=== PATIENT | male | born 1945 | race Caucasian/White ===

== ENCOUNTER 2016-11-16 11:17 | Inpatient (IN) | payer MEDICARE ==
[~2016-11-16] VITALS: Ht 175.3 cm; Wt 89.8 kg
[~2016-11-16 11:17] MED LIST: CLON1 PO; HYDR12.56 PO; NAPR220T9 PO; TYLE500T PO
[2016-11-16 11:19] VITALS: BP 178/95; PULSE 100; RESP 17; TEMP 98.1; O2SAT 96
[2016-11-16] MEDS ORDERED: ATOR20TA15 PO (13:05)
[2016-11-16] MEDS ORDERED: CLON1TAB PO (13:05)
[2016-11-16] MEDS ORDERED: HYDR25TA5 PO (13:05)
[2016-11-16] MEDS ORDERED: LOMO2.5T PO (13:05)
[2016-11-16] MEDS ORDERED: TRAM50TA PO (13:05)
--- NOTE | 2016-11-16 13:10 | PD ---
HPI Chief Complaint: Abdominal Pain Time Seen by Provider: 13:10 Travel History International Travel<30 days: No Contact w/Intl Traveler<30days: No Traveled to known affect area: No History of Present Illness HPI 71 year old male with PMH of colon cancer, status post resection ~25 years ago, SBO 11/[address] Marks presents to the ED for evaluation less than 24 hour history of abdominal pain. Patient states he ate dinner last night , shortly after he began experiencing pressure and tension in the abdomen. He states that during the course of the night he took a few stool softeners and was able to produce a small, well-formed stool this morning. He endorses passing a small amount of gas during the night. He denies fever, chills, dysuria, hematuria, nausea or vomiting. Endorses chronic back pain, no worse this morning. PCP Dr. Stern. [facility] Past Medical History Autoimmune Disease: No Anxiety: Yes Cancer: Yes (COLO/RECTAL) Cardiovascular Problems: Yes Diminished Hearing: No Hypertension: Yes Musculoskeletal: No Neurologic: No Reproductive: No Respiratory: No Past Surgical History Abdominal Aneurysm Repair: Yes (COLORECTAL SURGERY) Abdominal Surgery: Yes (COLECTOMY 2NDARY TO COLON CA) Pacemaker: No Social History Alcohol Use: No Tobacco Use: No Substance Use: No Allergies-Medications (Allergen,Severity, Reaction): Coded Allergies: No Known Allergies (Verified , 11/16/16) Reported Meds & Prescriptions Reported Meds & Active Scripts Active Reported Tramadol (Tramadol HCl) 50 Mg Tab 50 Mg PO Q6H PRN Hydrochlorothiazide 25 Mg Tab 25 Mg PO DAILY Lomotil (Diphenoxylate-Atropine) 2.5-0.025 Mg Tab 1 Tab PO Q6H PRN Clonazepam 1 Mg Tab 1.5 Mg PO HS Review of Systems Except as stated in HPI: all other systems reviewed are Neg Physical Exam Narrative GENERAL: Well-nourished, well-developed white male, appearing younger than his stated age, in no acute distress. SKIN: Warm and dry. HEAD: Normocephalic. EYES: No scleral icterus. No injection or drainage. NECK: Supple, trachea midline. No JVD or lymphadenopathy. CARDIOVASCULAR: Regular rate and rhythm without murmurs, gallops, or rubs. RESPIRATORY: Breath sounds clear and equal bilaterally. No accessory muscle use. GASTROINTESTINAL: Abdomen soft, mildly tender in all quadrants, left greater than right, nondistended. Active bowel sounds. MUSCULOSKELETAL: No cyanosis, or edema. BACK: Nontender without obvious deformity. No CVA tenderness. Data Data Last Documented VS Vital Signs Date Time Temp Pulse Resp B/P Pulse Ox O2 Delivery O2 Flow Rate FiO2 11/16/16 11:19 98.1 100 17 178/95 96 Orders Complete Blood Count With Diff (11/16/16 13:22) Comprehensive Metabolic Panel (11/16/16 13:22) Lipase (11/16/16 13:22) Lactic Acid (11/16/16 13:22) Prothrombin Time / Inr (Pt) (11/16/16 13:22) Act Partial Throm Time (Ptt) (11/16/16 13:22) Urinalysis - C+S If Indicated (11/16/16 13:22) Ct Abd/Pel W Iv Contrast(Rout) (11/16/16 13:22) Iv Access Insert/Monitor (11/16/16 13:22) Sodium Chlor 0.9% 1000 Ml Inj (Ns 1000 M (11/16/16 13:22) Sodium Chloride 0.9% Flush (Ns Flush) (11/16/16 13:30) Labs Laboratory Tests Test 11/16/16 11/16/16 11/16/16 12:37 13:27 14:12 White Blood Count 9.8 TH/MM3 Red Blood Count 4.65 MIL/MM3 Hemoglobin 14.3 GM/DL Hematocrit 41.1 % Mean Corpuscular Volume 88.5 FL Mean Corpuscular Hemoglobin 30.8 PG Mean Corpuscular Hemoglobin 34.9 % Concent Red Cell Distribution Width 12.2 % Platelet Count 244 TH/MM3 Mean Platelet Volume 7.9 FL Neutrophils (%) (Auto) 84.5 % Lymphocytes (%) (Auto) 8.7 % Monocytes (%) (Auto) 6.0 % Eosinophils (%) (Auto) 0.5 % Basophils (%) (Auto) 0.3 % Neutrophils # (Auto) 8.2 TH/MM3 Lymphocytes # (Auto) 0.8 TH/MM3 Monocytes # (Auto) 0.6 TH/MM3 Eosinophils # (Auto) 0.1 TH/MM3 Basophils # (Auto) 0.0 TH/MM3 CBC Comment DIFF FINAL Differential Comment Prothrombin Time 10.4 SEC Prothromb Time International 0.9 RATIO Ratio Activated Partial 30.3 SEC Thromboplast Time Sodium Level 139 MEQ/L Potassium Level 3.4 MEQ/L Chloride Level 103 MEQ/L Carbon Dioxide Level 29.5 MEQ/L Anion Gap 7 MEQ/L Blood Urea Nitrogen 14 MG/DL Creatinine 0.74 MG/DL Estimat Glomerular Filtration 104 ML/MIN Rate Random Glucose 91 MG/DL Calcium Level 8.5 MG/DL Total Bilirubin 0.8 MG/DL Aspartate Amino Transf 13 U/L (AST/SGOT) Alanine Aminotransferase 20 U/L (ALT/SGPT) Alkaline Phosphatase 78 U/L Total Protein 7.2 GM/DL Albumin 3.7 GM/DL Lipase 7788 U/L Lactic Acid Level 0.8 mmol/L Urine Color YELLOW Urine Turbidity CLEAR Urine pH 6.5 Urine Specific [place] 1.011 Urine Protein NEG mg/dL Urine Glucose (UA) NEG mg/dL Urine Ketones 40 mg/dL Urine Occult Blood NEG Urine Nitrite NEG Urine Bilirubin NEG Urine Urobilinogen LESS THAN 2.0 MG/DL Urine Leukocyte Esterase NEG Urine RBC 1 /hpf Urine WBC 1 /hpf Microscopic Urinalysis Comment CULT NOT INDICATED MDM Medical Decision Making Medical Screen Exam Complete: Yes Emergency Medical Condition: Yes Differential Diagnosis Ileus versus bowel obstruction versus other pancreatitis versus diverticulitis versus colitis versus other Narrative Course 71 year old male with PMH of colon cancer, status post resection ~25 years ago, SBO 11/[address] Marks presents to the ED for evaluation less than 24 hour history of abdominal pain. Patient states he ate dinner last night , shortly after he began experiencing pressure and tension in the abdomen. He states that during the course of the night he took a few stool softeners and was able to produce a small, well-formed stool this morning. He endorses passing a small amount of gas during the night. He denies fever, chills, dysuria, hematuria, nausea or vomiting. PCP Dr. Stern. Vitals reviewed. Physical exam reveals a nontoxic-appearing white male in no acute distress. Abdomen nondistended, mildly tender in all quadrants, left greater than right. No palpable masses. IV was established, patient was administered a liter of an abscess. Lab work, abdominal CT ordered. Lipase 7788. Patient is transferred to the medical pods under the care of Dr. Renae. Please see her notes for disposition. Rosemary Mccullough Nov 16, 2016 13:10
[2016-11-16] MEDS ORDERED: SODIUM CHLOR 0.9% 1000 ML INJ 1,000 ML IV SCH (13:22)
[2016-11-16 13:44] LABS: AUTOMATED NEUTROPHIL # 8.2 TH/MM3 (1.8-7.7); BASOPHIL % 0.3 % (0.0-2.0); EOSINOPHIL # 0.1 TH/MM3 (0-0.4); EOSINOPHIL % 0.5 % (0.0-4.0); HEMATOCRIT 41.1 % (39.0-51.0); HEMO FLAGS DIFF FINAL; LYMPH % 8.7 % (9.0-44.0); LYMPHOCYTE # 0.8 TH/MM3 (1.0-4.8); MEAN CELL VOLUME 88.5 FL (80.0-100.0); MEAN CORPUSCULAR HEMOGLOBIN 30.8 PG (27.0-34.0); MEAN CORPUSCULAR HGB CONC 34.9 % (32.0-36.0); NEUT % 84.5 % (16.0-70.0); PLATELET COUNT 244 TH/MM3 (150-450); RED BLOOD COUNT 4.65 MIL/MM3 (4.50-5.90); RED CELL DISTRIBUTION WIDTH 12.2 % (11.6-17.2); WHITE BLOOD COUNT 9.8 TH/MM3 (4.0-11.0)
[2016-11-16 13:49] LABS: APTT (PATIENT) 30.3 SEC (24.3-30.1); INTERNATIONAL NORMALIZED RATIO 0.9 RATIO; PROTHROMBIN TIME - PATIENT 10.4 SEC (9.8-11.6)
[2016-11-16 14:09] LABS: ANION GAP 7 MEQ/L (5-15)
[2016-11-16 14:13] LABS: ALKALINE PHOSPHATASE 78 U/L (45-117); ALT (GPT) 20 U/L (12-78); AST (GOT) 13 U/L (15-37); BICARBONATE 29.5 MEQ/L (21.0-32.0); BLOOD UREA NITROGEN 14 MG/DL (7-18); CHLORIDE 103 MEQ/L (98-107); GLOMERULAR FILTRATION RATE 104 ML/MIN (>89); POTASSIUM 3.4 MEQ/L (3.5-5.1); SODIUM (NA) 139 MEQ/L (136-145); TOTAL BILIRUBIN ADULT 0.8 MG/DL (0.2-1.0)
[2016-11-16] MEDS: SODIUM CHLORIDE 0.9% FLUSH 5 ML FLUSH IVF PRN ×2 (14:25→16:22)
[2016-11-16 14:28] LABS: BLOOD, URINE NEG (NEG); COMMENT (UR) CULT NOT INDICATED; CULTURE IF INDICATED CULT NOT INDICATED; GLUCOSE,URINE NEG (NEG); KETONE, URINE 40 mg/dL (NEG); NITRITE,URINE NEG (NEG); PH, URINE 6.5 (5.0-8.5); URINE COLOR YELLOW (YELLW/STRAW)
[2016-11-16] MEDS ORDERED: ONDANSETRON HCL 4 MG/2 ML VIAL IV PUSH ONE (15:00)
[2016-11-16] MEDS ORDERED: SODIUM CHLOR 0.9% 1000 ML INJ 1,000 ML IV ONE (15:00)
[2016-11-16] MEDS ORDERED: MORPHINE SULFATE 4 MG/ML INJ IV PUSH ONE (15:00)
[2016-11-16] MEDS ORDERED: IOHEXOL 350 MG/ML 10 ML VIAL (for RAD DIAG) IV ONE (15:28)
[2016-11-16 15:29] VITALS: BP 152/86; PULSE 75; RESP 16; TEMP 97.8; O2SAT 98
--- NOTE | 2016-11-16 15:45 | PD ---
HPI Chief Complaint: Abdominal Pain Time Seen by Provider: 14:39 Travel History International Travel<30 days: No Contact w/Intl Traveler<30days: No Traveled to known affect area: No History of Present Illness HPI 71-year-old male came to the emergency room with history of abdominal pain/ discomfort since last night. Patient says that he had small bowel obstruction a year and a half ago and this time it feels exactly like that. No history of vomiting or diarrhea. In fact patient says that he has not had a good bowel movement in past 2 days. He has passed some gas and had a small well-formed stool this morning. Patient was seen by the nurse practitioner in triage and some blood test were ordered. By the time he came inside the emergency room the blood test results were back and it seems like his lipase is elevated. I discussed with him about the possibility of acute pancreatitis. Patient was just started recently on statins for mildly elevated blood profile. Other than that he is not an alcoholic and has never had gallbladder issues. There is a CAT scan that has been ordered as well which is pending. Vital signs were stable. He said he was in some discomfort from the pain. [facility] Past Medical History Narrative Medical List of his past medical history as reviewed from the nursing note. Autoimmune Disease: No Anxiety: Yes Cancer: Yes (COLO/RECTAL) Cardiovascular Problems: Yes Diminished Hearing: No Gastrointestinal Disorders: Yes Hypertension: Yes Musculoskeletal: No Neurologic: No Reproductive: No Respiratory: No Tetanus Vaccination: > 5 Years Past Surgical History Abdominal Aneurysm Repair: Yes (COLORECTAL SURGERY) Abdominal Surgery: Yes (COLECTOMY 2NDARY TO COLON CA) Pacemaker: No Other Surgery: Yes Social History Alcohol Use: No Tobacco Use: No Substance Use: No Allergies-Medications (Allergen,Severity, Reaction): Coded Allergies: No Known Allergies (Verified , 11/16/16) Comments No known drug allergies. Reported Meds & Prescriptions Reported Meds & Active Scripts Active Reported Atorvastatin (Atorvastatin Calcium) 20 Mg Tab 20 Mg PO HS Tramadol (Tramadol HCl) 50 Mg Tab 50 Mg PO Q6H PRN Hydrochlorothiazide 25 Mg Tab 25 Mg PO DAILY Lomotil (Diphenoxylate-Atropine) 2.5-0.025 Mg Tab 1 Tab PO Q6H PRN Clonazepam 1 Mg Tab 1.5 Mg PO HS Narrative Medication List of his home medications reviewed from the nursing note. Review of Systems Except as stated in HPI: all other systems reviewed are Neg Physical Exam Narrative GENERAL: Awake, alert, moderate distress SKIN: Warm and dry. HEAD: Atraumatic. Normocephalic. EYES: Pupils equal and round. No scleral icterus. No injection or drainage. ENT: No nasal bleeding or discharge. Dry mucous membrane NECK: Trachea midline. No JVD. CARDIOVASCULAR: Regular rate and rhythm. No murmur appreciated. RESPIRATORY: No accessory muscle use. Clear to auscultation. Breath sounds equal bilaterally. GASTROINTESTINAL: Abdomen soft, non-tender, nondistended. Hepatic and splenic margins not palpable. MUSCULOSKELETAL: No obvious deformities. No clubbing. No cyanosis. No edema. NEUROLOGICAL: Awake and alert. No obvious cranial nerve deficits. Motor grossly within normal limits. Normal speech. PSYCHIATRIC: Appropriate mood and affect; insight and judgment normal. Data Data Last Documented VS Vital Signs Date Time Temp Pulse Resp B/P Pulse Ox O2 Delivery O2 Flow Rate FiO2 11/16/16 15:29 97.8 75 16 152/86 98 Room Air Orders Complete Blood Count With Diff (11/16/16 13:22) Comprehensive Metabolic Panel (11/16/16 13:22) Lipase (11/16/16 13:22) Lactic Acid (11/16/16 13:22) Prothrombin Time / Inr (Pt) (11/16/16 13:22) Act Partial Throm Time (Ptt) (11/16/16 13:22) Urinalysis - C+S If Indicated (11/16/16 13:22) Ct Abd/Pel W Iv Contrast(Rout) (11/16/16 13:22) Iv Access Insert/Monitor (11/16/16 13:22) Sodium Chlor 0.9% 1000 Ml Inj (Ns 1000 M (11/16/16 13:22) Sodium Chloride 0.9% Flush (Ns Flush) (11/16/16 13:30) Morphine Inj (Morphine Inj) (11/16/16 15:00) Ondansetron Inj (Zofran Inj) (11/16/16 15:00) Sodium Chlor 0.9% 1000 Ml Inj (Ns 1000 M (11/16/16 15:00) Iohexol 350 Inj (Omnipaque 350 Inj) (11/16/16 15:28) Diet Npo (11/16/16 Dinner) Vital Signs (Adult) LINDA.Q4H (11/16/16 16:42) Lipase (11/17/16 06:00) Ondansetron Inj (Zofran Inj) (11/16/16 16:45) Acetaminophen (Tylenol) (11/16/16 16:45) Hydromorphone Pf Inj (Dilaudid Pf Inj) (11/16/16 16:45) Admit Order (Ed Use Only) (11/16/16 16:43) Labs Laboratory Tests Test 11/16/16 11/16/16 11/16/16 12:37 13:27 14:12 White Blood Count 9.8 TH/MM3 Red Blood Count 4.65 MIL/MM3 Hemoglobin 14.3 GM/DL Hematocrit 41.1 % Mean Corpuscular Volume 88.5 FL Mean Corpuscular Hemoglobin 30.8 PG Mean Corpuscular Hemoglobin 34.9 % Concent Red Cell Distribution Width 12.2 % Platelet Count 244 TH/MM3 Mean Platelet Volume 7.9 FL Neutrophils (%) (Auto) 84.5 % Lymphocytes (%) (Auto) 8.7 % Monocytes (%) (Auto) 6.0 % Eosinophils (%) (Auto) 0.5 % Basophils (%) (Auto) 0.3 % Neutrophils # (Auto) 8.2 TH/MM3 Lymphocytes # (Auto) 0.8 TH/MM3 Monocytes # (Auto) 0.6 TH/MM3 Eosinophils # (Auto) 0.1 TH/MM3 Basophils # (Auto) 0.0 TH/MM3 CBC Comment DIFF FINAL Differential Comment Prothrombin Time 10.4 SEC Prothromb Time International 0.9 RATIO Ratio Activated Partial 30.3 SEC Thromboplast Time Sodium Level 139 MEQ/L Potassium Level 3.4 MEQ/L Chloride Level 103 MEQ/L Carbon Dioxide Level 29.5 MEQ/L Anion Gap 7 MEQ/L Blood Urea Nitrogen 14 MG/DL Creatinine 0.74 MG/DL Estimat Glomerular Filtration 104 ML/MIN Rate Random Glucose 91 MG/DL Calcium Level 8.5 MG/DL Total Bilirubin 0.8 MG/DL Aspartate Amino Transf 13 U/L (AST/SGOT) Alanine Aminotransferase 20 U/L (ALT/SGPT) Alkaline Phosphatase 78 U/L Total Protein 7.2 GM/DL Albumin 3.7 GM/DL Lipase 7788 U/L Lactic Acid Level 0.8 mmol/L Urine Color YELLOW Urine Turbidity CLEAR Urine pH 6.5 Urine Specific [place] 1.011 Urine Protein NEG mg/dL Urine Glucose (UA) NEG mg/dL Urine Ketones 40 mg/dL Urine Occult Blood NEG Urine Nitrite NEG Urine Bilirubin NEG Urine Urobilinogen LESS THAN 2.0 MG/DL Urine Leukocyte Esterase NEG Urine RBC 1 /hpf Urine WBC 1 /hpf Microscopic Urinalysis Comment CULT NOT INDICATED MDM Medical Decision Making Medical Screen Exam Complete: Yes Emergency Medical Condition: Yes Medical Record Reviewed: Yes Differential Diagnosis Acute pancreatitis, small bowel obstruction Narrative Course 3:43 PM awaiting for the CAT scan report. Patient was given a second IV fluid bolus. He will require admission for the acute pancreatitis. He was given Morphine for the pain. 4:13 PM CAT scan shows acute pancreatitis. Awaiting for the hospitalist to call back for admission. Procedures EKG Prior to Arrival: No Diagnosis Primary Impression: Acute pancreatitis Qualified Code: K85.90 - Acute pancreatitis, unspecified complication status, unspecified pancreatitis type Admitting Information Admitting Physician Requests: Admit Sanya Renae MD Nov 16, 2016 15:45
--- NOTE | 2016-11-16 16:06 | RADRPT ---
EXAM DATE/TIME: 11/16/2016 15:13 [place] COMPARISON: CT ABDOMEN & PELVIS W CONTRAST, March 22, 2014, 11:51. INDICATIONS : Abdominal pain. IV CONTRAST: 100 cc Omnipaque 350 (iohexol) IV ORAL CONTRAST: No oral contrast ingested. RADIATION DOSE: 16.01 CTDIvol (mGy) MEDICAL HISTORY : Cardiovascular disease. Hypertension. Carcinoma, colon. SURGICAL HISTORY : Colon resection. ENCOUNTER: Initial ACUITY: 1 day PAIN SCALE: 7/10 LOCATION: Bilateral lower quadrant TECHNIQUE: Volumetric scanning of the abdomen and pelvis was performed. Using automated exposure control and ad justment of the mA and/or kV according to patient size, radiation dose was kept as low as reasonably achievable to obtain optimal diagnostic quality images. FINDINGS: LOWER LUNGS: The visualized lower lungs are clear. LIVER: Multiple simple cysts are again identified in the liver. There no suspicious space-occupying lesions. There is no evidence of biliary duct dilatation. Gallbladder remains in place without evidence of ch olelithiasis. SPLEEN: Normal size without lesion. PANCREAS: Mild peripancreatic stranding is identified. There is loss of normal glandular definition in the body the pancreas. KIDNEYS: Normal in size and shape. There is no mass, stone or hydronephrosis. ADRENAL GLANDS: Within normal limits. VASCULAR: There is no aortic aneurysm. BOWEL/MESENTERY: The stomach, small bowel, and colon demonstrate no acute abnormality. There is no free intraperitone al air or fluid. ABDOMINAL WALL: Within normal limits. RETROPERITONEUM: There is no lymphadenopathy. BLADDER: No wall thickening or mass. REPRODUCTIVE: Prostate is mildly enlarged and contains calcific deposits. INGUINAL: There is no lymphadenopathy or hernia. MUSCULOSKELETAL: Significant facet arthropathy is identified in the lumbar spine at L4-5 and L5-S1. CONCLUSION: Mild peripancreatic fluid stranding suspicious for early pancreatitis. Stable hepatic cysts. Degenerative changes in lumbar spine. No other significant abnormalities. Conner Rajan MD on November 16, 2016 at 15:59 Board Certified Radiologist. This report was verified electronically.
[2016-11-16] MEDS ORDERED: POTASSIUM CHLORIDE INJ 20 MEQ in SODIUM CHLOR 0.9% 1000 ML INJ 1,000 ML IV SCH (16:45)
[2016-11-16] MEDS ORDERED: ONDANSETRON HCL 4 MG/2 ML VIAL IV PUSH PRN (16:45)
[2016-11-16] MEDS ORDERED: ACETAMINOPHEN 325 MG TAB PO PRN (16:45)
[2016-11-16] MEDS ORDERED: HYDROmorphone HCL PF 1 MG/ML VIAL IV PUSH PRN (16:45)
[2016-11-16 17:11] VITALS: BP 161/70; PULSE 74; RESP 16; TEMP 97.8; O2SAT 100
[2016-11-16] MEDS: NS + KCL 20 MEQ INJ 1,000 ML IV SCH (17:25)
[2016-11-16] MEDS ORDERED: ACETAMINOPHEN/HYDROcodone 325 MG/5 MG TAB PO PRN (17:45)
--- NOTE | 2016-11-16 18:08 | HHI.HP ---
[facility] Lefty Stern, PhD, MD Admission Diagnosis acute pancreatitis Diagnoses: Chief Complaint: Abdominal Pain Travel History International Travel<30 Days: No Contact w/Intl Traveler <30 Da: No Traveled to Known Affected Are: No History of Present Illness Patient is a 71-year-old old white male with primary medical history of colorectal cancer, anxiety, hypertension, chronic back pain who came into the hospital for complaints of abdominal pain. Abdominal pain started last night, feeling uncomfortable. He thought that he was just constipated in the beginning. However, it occurred to him that he might have a small bowel obstruction as he felt the same way when he had small bowel obstruction several years ago. He took some stool softeners, and had a bowel movement but states it 's less than his ideal bowel movement. He felt like he had a temperature but never really checked on the thermometer. Abdominal pain is described as generalized rated 4-5/10, it was constant, nonradiating, unrelieved by rest. Patient thought that abdominal pain is controlled go away and he ate toast and drank coffee this morning. Pain was persistent that he proceeded to go to the hospital. CBC showed neutrophil percentage 84.5 lymph percentage is 8.7, CMP potassium 3.4 , AST 13, lipase 7788. CT of the abdomen and pelvis showed mild peripancreatic fluid stranding suspicious for early pancreatitis. Stable hepatic cysts. Degenerative changes in the lumbar spine. No other significant abnormalities. Patient states that his pain has been relieved by morphine now. Denies any nausea, vomiting, diarrhea. Denies SOB/ dyspnea. Denies chest pain, palpitations, headaches, dizziness. Denies fevers, chills, n/v/d. Review of Systems Other Negative except for what is noted on history of present illness. Past Family Social History Past Medical History Colorectal cancer Anxiety Hypertension Back pain High cholesterol Past Surgical History Colorectal surgery colectomy Reported Medications Tramadol (Tramadol HCl) 50 Mg Tab 50 Mg PO Q6H PRN Hydrochlorothiazide 25 Mg Tab 25 Mg PO DAILY Lomotil (Diphenoxylate-Atropine) 2.5-0.025 Mg Tab 1 Tab PO Q6H PRN Clonazepam 1 Mg Tab 1.5 Mg PO HS Allergies: Coded Allergies: No Known Allergies (Verified , 11/16/16) Active Ordered Medications Current Medications Medications (Trade) Dose Ordered Sig/Praneeth Route Start Time Stop Time Status Last Admin (NS Flush) 2 ml UNSCH PRN IVF 11/16/16 13:30 11/16/16 16:22 (Zofran Inj) 4 mg Q8HR PRN IV PUSH 11/16/16 16:45 (Tylenol) 650 mg Q4H PRN PO 11/16/16 16:45 Hydromorphone HCl 0.5 mg 0.5 mg Q4H PRN IV PUSH 11/16/16 16:45 (NS + KCl 20 Meq Inj) 1,000 ml @ 100 mls/hr Q10H IV 11/16/16 17:15 11/16/16 17:25 Family History Father had prostate cancer age 70s Social History Denies alcohol use Denies tobacco use Denies illicit drug use Physical Exam Vital Signs Vital Signs Date Time Temp Pulse Resp B/P Pulse Ox O2 Delivery O2 Flow Rate FiO2 11/16/16 17:11 97.8 74 16 161/70 100 Room Air 11/16/16 15:29 97.8 75 16 152/86 98 Room Air 11/16/16 15:28 16 11/16/16 15:20 16 11/16/16 11:19 98.1 100 17 178/95 96 Physical Exam GENERAL: This is a well-nourished, well-developed patient, in no apparent distress. SKIN: No rashes, ecchymoses or lesions. Cool and dry. HEAD: Atraumatic. Normocephalic. No temporal or scalp tenderness. EYES: Pupils equal round and reactive. Extraocular motions intact. No scleral icterus. No injection or drainage. ENT: Nose without bleeding. Throat without erythema. Uvula midline. Airway patent. NECK: Trachea midline. No JVD or lymphadenopathy. Supple, nontender, no meningeal signs. CARDIOVASCULAR: Regular rate and rhythm without murmurs, gallops, or rubs. RESPIRATORY: Clear to auscultation. Breath sounds equal bilaterally. No wheezes , rales, or rhonchi. GASTROINTESTINAL: Abdomen soft, non-tender, nondistended. Hypoactive bowel sounds. MUSCULOSKELETAL: Extremities without clubbing, cyanosis, or edema. No joint tenderness, effusion, or edema noted. No calf tenderness. Negative Homans sign bilaterally. NEUROLOGICAL: Awake and alert. Oriented 3. Motor and sensory grossly within normal limits. No focal neuro deficit. Normal speech. Laboratory Laboratory Tests Test 11/16/16 11/16/16 11/16/16 12:37 13:27 14:12 White Blood Count 9.8 Red Blood Count 4.65 Hemoglobin 14.3 Hematocrit 41.1 Mean Corpuscular Volume 88.5 Mean Corpuscular Hemoglobin 30.8 Mean Corpuscular Hemoglobin 34.9 Concent Red Cell Distribution Width 12.2 Platelet Count 244 Mean Platelet Volume 7.9 Neutrophils (%) (Auto) 84.5 Lymphocytes (%) (Auto) 8.7 Monocytes (%) (Auto) 6.0 Eosinophils (%) (Auto) 0.5 Basophils (%) (Auto) 0.3 Neutrophils # (Auto) 8.2 Lymphocytes # (Auto) 0.8 Monocytes # (Auto) 0.6 Eosinophils # (Auto) 0.1 Basophils # (Auto) 0.0 CBC Comment DIFF FINAL Differential Comment Prothrombin Time 10.4 Prothromb Time International 0.9 Ratio Activated Partial 30.3 Thromboplast Time Sodium Level 139 Potassium Level 3.4 Chloride Level 103 Carbon Dioxide Level 29.5 Anion Gap 7 Blood Urea Nitrogen 14 Creatinine 0.74 Estimat Glomerular Filtration 104 Rate Random Glucose 91 Calcium Level 8.5 Total Bilirubin 0.8 Aspartate Amino Transf 13 (AST/SGOT) Alanine Aminotransferase 20 (ALT/SGPT) Alkaline Phosphatase 78 Total Protein 7.2 Albumin 3.7 Lipase 7788 Lactic Acid Level 0.8 Urine Color YELLOW Urine Turbidity CLEAR Urine pH 6.5 Urine Specific [place] 1.011 Urine Protein NEG Urine Glucose (UA) NEG Urine Ketones 40 Urine Occult Blood NEG Urine Nitrite NEG Urine Bilirubin NEG Urine Urobilinogen LESS THAN 2.0 Urine Leukocyte Esterase NEG Urine RBC 1 Urine WBC 1 Microscopic Urinalysis Comment CULT NOT INDICATED Result Diagram: 11/16/16 1237 11/16/16 1237 Imaging Last Impressions Abdomen/Pelvis CT 11/16/16 1322 Signed Impressions: Service Date/Time: Wednesday, November 16, 2016 15:13 - CONCLUSION: Mild peripancreatic fluid stranding suspicious for early pancreatitis. Stable hepatic cysts. Degenerative changes in lumbar spine. No other significant abnormalities. Conner Rajan MD Assessment and Plan Problem List: (1) Acute pancreatitis ICD Code: K85.90 Status: Acute (2) HTN (hypertension) ICD Code: I10 Status: Acute (3) Anxiety ICD Code: F41.9 Status: Acute Assessment and Plan Patient is a pleasant 71-year-old old white male with primary medical history of colorectal cancer, anxiety, hypertension, chronic back pain who came into the hospital for complaints of abdominal pain. Pancreatitis - lipase 7788 - CT abdomen pelvis showed mild peripancreatic fluid stranding suspicious for early pancreatitis. Stable hepatic cysts. Degenerative changes in lumbar spine. No other significant abnormalities - Keep nothing by mouth overnight. Will advance in the morning if tolerated. - IV fluids for hydration. Pain management morphine. Zofran for nausea. - Recheck lipase, BMP tomorrow Rule out cholecystitis-patient denies any alcohol use -US of the abdomen HTN -monitor BP trend for now. We'll do hydralazine when necessary. -Restart home med hydrochlorothiazide 25 mg daily, tomorrow morning DVT prop SCDs Written by Sidney Carbone, acting as scribe for Dr. Armando on 11/16/16 at 18: 05. patient was seen and examined today. 71 y/o male who presented with abdominal pain- started last night. CT of the abdomen result reviewed. continue with supportive care with IV fluid/ pain control and antiemetics. NPO for now. rest of assessment and plan as noted above. Code Status Patient has a living well but not at hand. Full code for now until we get a copy of the living will. Discussed Condition With Patient, nursing, ED attending. Physician Certification 2 Midnight Certification Type: Admission for Inpatient Services Order for Inpatient Services The services are ordered in accordance with Medicare regulations or non- Medicare payer requirements, as applicable. In the case of services not specified as inpatient-only, they are appropriately provided as inpatient services in accordance with the 2-midnight benchmark. Estimated LOS (days): 2 days is the estimated time the patient will need to remain in the hospital, assuming treatment plan goals are met and no additional complications. Post-Hospital Plan: Home Problem Qualifiers (1) Acute pancreatitis: Qualified Code: K85.90 - Acute pancreatitis, unspecified complication status, unspecified pancreatitis type Sidney Hinton Nov 16, 2016 18:08 Claudia Trujillo MD Nov 16, 2016 18:11
[2016-11-16] MEDS ORDERED: MAGNESIUM HYDROXIDE SUSP 30 ML CUP PO PRN (18:15)
[2016-11-16] MEDS ORDERED: hydrALAZINE HCL 10 MG TAB PO PRN (18:15)
[2016-11-16] MEDS ORDERED: NALOXONE HCL 0.4 MG/ML AMP IV PRN (18:15)
[2016-11-16] MEDS ORDERED: SODIUM CHLORIDE 0.9% FLUSH 5 ML FLUSH FLUSH PRN (18:15)
[2016-11-16] MEDS ORDERED: ENALAPRILAT 1.25 MG/ML VIAL IV PUSH PRN (18:15)
[2016-11-16 20:12] VITALS: BP 146/76; PULSE 81; RESP 18; TEMP 98.4; O2SAT 95
--- NOTE | 2016-11-16 20:28 | RADRPT ---
EXAM DATE/TIME: 11/16/2016 18:56 [place] COMPARISON: No previous studies available for comparison. INDICATIONS : Right upper quadrant pain. MEDICAL HISTORY : Carcinoma, colon. Hypertension. Gastrointestinal disorders. SURGICAL HISTORY : Colorectal surgery. AAA repair. ENCOUNTER: Initial ACUITY: 1 day PAIN SCORE: 7/10 LOCATION: Right upper quadrant MEASUREMENTS: LIVER: 16.4 cm length COMMON DUCT: 5 mm RIGHT KIDNEY: 10.8 x 5.4 x 5.4 cm FINDINGS: Pancreas not well-visualized due to overlying bowel gas. No focal liver lesions seen. Recent cysts se en on CT not clearly visualized sonographically. Liver is heterogeneous. Right kidney unremarkable. N o free fluid. No gallstones or biliary ductal dilatation. CONCLUSION: 1. No acute findings. Jordi Mason MD on November 16, 2016 at 20:25 Board Certified Radiologist. This report was verified electronically.
[2016-11-16] MEDS: SODIUM CHLORIDE 0.9% FLUSH 5 ML FLUSH FLUSH SCH (21:14)
[2016-11-16] MEDS: clonazePAM 1 MG TAB PO SCH (21:14)
[2016-11-16 21:35] VITALS: BP 149/85; PULSE 74; RESP 18; TEMP 99; O2SAT 96
[2016-11-17] VITALS (8 sets, daily range): BP systolic 100–140; BP diastolic 60–77; PULSE 73–95; RESP 16–20; TEMP 98–99.6; O2SAT 94–97
[2016-11-17] MEDS: NS + KCL 20 MEQ INJ 1,000 ML IV SCH ×3 (03:15→22:50)
[2016-11-17 04:58] LABS: AUTOMATED NEUTROPHIL # 8.5 TH/MM3 (1.8-7.7); BASOPHIL % 0.3 % (0.0-2.0); EOSINOPHIL # 0.1 TH/MM3 (0-0.4); EOSINOPHIL % 1.1 % (0.0-4.0); HEMATOCRIT 38.1 % (39.0-51.0); HEMO FLAGS DIFF FINAL; LYMPH % 10.6 % (9.0-44.0); LYMPHOCYTE # 1.1 TH/MM3 (1.0-4.8); MEAN CELL VOLUME 87.7 FL (80.0-100.0); MEAN CORPUSCULAR HEMOGLOBIN 31.2 PG (27.0-34.0); MEAN CORPUSCULAR HGB CONC 35.6 % (32.0-36.0); MONO % 7.9 % (0.0-8.0); NEUT % 80.1 % (16.0-70.0); PLATELET COUNT 247 TH/MM3 (150-450); RED BLOOD COUNT 4.34 MIL/MM3 (4.50-5.90); RED CELL DISTRIBUTION WIDTH 12.6 % (11.6-17.2); WHITE BLOOD COUNT 10.6 TH/MM3 (4.0-11.0)
[2016-11-17 05:24] LABS: ANION GAP 9 MEQ/L (5-15); BICARBONATE 25.4 MEQ/L (21.0-32.0); BLOOD UREA NITROGEN 13 MG/DL (7-18); CHLORIDE 107 MEQ/L (98-107); POTASSIUM 3.5 MEQ/L (3.5-5.1); SODIUM (NA) 141 MEQ/L (136-145)
--- NOTE | 2016-11-17 08:11 | HHI.PR ---
Subjective Remarks resting comfortably with no distress. abdominal pain has improved. no nausea or vomiting. Objective Vitals Vital Signs Date Time Temp Pulse Resp B/P Pulse Ox O2 Delivery O2 Flow Rate FiO2 11/17/16 04:44 14 11/17/16 04:34 98.4 95 18 135/69 95 11/17/16 00:25 98.9 83 18 135/71 95 11/16/16 21:35 99.0 74 18 149/85 96 11/16/16 20:12 98.4 81 18 146/76 95 Room Air 11/16/16 17:11 97.8 74 16 161/70 100 Room Air 11/16/16 15:29 97.8 75 16 152/86 98 Room Air 11/16/16 15:28 16 11/16/16 15:20 16 11/16/16 11:19 98.1 100 17 178/95 96 Result Diagram: 11/17/16 0403 11/17/16 0403 Imaging Last Impressions Abdomen/Pelvis CT 11/16/16 1322 Signed Impressions: Service Date/Time: Wednesday, November 16, 2016 15:13 - CONCLUSION: Mild peripancreatic fluid stranding suspicious for early pancreatitis. Stable hepatic cysts. Degenerative changes in lumbar spine. No other significant abnormalities. Conner Rajan MD Gall Bladder Ultrasound 11/16/16 0000 Signed Impressions: Service Date/Time: Wednesday, November 16, 2016 18:56 - CONCLUSION: 1. No acute findings. Jordi Mason MD Objective Remarks GENERAL: This is a well-nourished, well-developed patient, in no apparent distress. CARDIOVASCULAR: Regular rate and regular rhythm without murmurs, gallops, or rubs. RESPIRATORY: Clear to auscultation. Breath sounds equal bilaterally. No wheezes , rales, or rhonchi. GASTROINTESTINAL: Abdomen soft, minimal generalized tenderness, nondistended. Normal, active bowel sounds MUSCULOSKELETAL: Extremities without clubbing, cyanosis, or edema. NEURO: Alert & Oriented x4 to person, place, time, situation. Moves all ext x4 Procedures none Medications and IVs Current Medications Sodium Chloride (NS 1000 ml Inj) 1,000 ml @ 1,000 mls/hr Q1H IV Last administered on 11/16/16t 13:22; Start 11/16/16 at 13:22; Stop 11/16/16 at 14:21 ; Status DC IV Flush (NS Flush) 2 ml UNSCH PRN IVF FLUSH AFTER USING IV ACCESS Last administered on 11/16/16 16:22; Start 11/16/16 at 13:30 Morphine Sulfate (Morphine Inj) 4 mg ONCE ONCE IV PUSH Last administered on 15:23; Start 11/16/16 at 15:00; Stop 11/16/16 at 15:01; Status DC Ondansetron HCl 4 mg 4 mg ONCE ONCE IV PUSH Last administered on 11/16/16 15: 23; Start 11/16/16 at 15:00; Stop 11/16/16 at 15:01; Status DC Sodium Chloride (NS 1000 ml Inj) 1,000 ml @ 999 mls/hr BOLUS ONCE IV Last administered on 11/16/16 15:22; Start 11/16/16 at 15:00; Stop 11/16/16 at 16:00 ; Status DC Iohexol 100 ml 100 ml STK-MED ONCE IV Last administered on 11/16/16 15:28; Start 11/16/16 at 15:28; Stop 11/16/16 at 15:29; Status DC Potassium Chloride/Sodium Chloride (KCl Inj/NS 1000 ml Inj) 1,010 ml @ 100 mls/ hr Q10H6M IV ; Start 11/16/16 at 16:45; Status UNV Ondansetron HCl (Zofran Inj) 4 mg Q8HR PRN IV PUSH NAUSEA; Start 11/16/16 at 16 :45 Acetaminophen (Tylenol) 650 mg Q4H PRN PO FEVER; Start 11/16/16 at 16:45 Hydromorphone HCl 0.5 mg 0.5 mg Q4H PRN IV PUSH BREAKTHROUGH PAIN; Start at 16:45 Potassium Chloride/Sodium Chloride (NS + KCl 20 Meq Inj) 1,000 ml @ 100 mls/hr Q10H IV Last administered on 11/16/16 17:25; Start 11/16/16 at 17:15 Acetaminophen/ Hydrocodone Bitart ([place] 5-325 Mg) 1 tab Q4H PRN PO PAIN 1-5; Start 11/16/16 at 17:45 Acetaminophen/ Hydrocodone Bitart ([place] 5-325 Mg) 2 tab Q4H PRN PO PAIN 6-10 Last administered on 11/17/16 03:27; Start 11/16/16 at 17:45 Clonazepam (KlonoPIN) 1.5 mg HS PO Last administered on 11/16/16 21:14; Start 11/16/16 at 21:00 Hydrochlorothiazide (Hydrodiuril) 25 mg DAILY PO ; Start 11/17/16 at 09:00 Enalaprilat (Vasotec Inj) 1.25 mg Q8H PRN IV PUSH SBP> OR = 180, DBP> OR = 100 ; Start 11/16/16 at 18:15 IV Flush (NS Flush) 2 ml UNSCH PRN FLUSH FLUSH AFTER USING IV ACCESS; Start at 18:15 IV Flush (NS Flush) 2 ml BID FLUSH Last administered on 11/16/16 21:14; Start 11/16/16 at 21:00 Magnesium Hydroxide (Milk Of Magnesia Liq) 30 ml Q12H PRN PO CONSTIPATION; Start 11/16/16 at 18:15 Naloxone HCl (Narcan Inj) 0.4 mg UNSCH PRN IV SEE LABEL COMMENTS; Start at 18:15 Hydralazine HCl (Apresoline) 10 mg Q6HR PRN PO SBP >160, DBP >110; Start at 18:15 A/P Assessment and Plan Pancreatitis - improving- abdominal pain is better and lipase trending down. - CT abdomen pelvis showed mild peripancreatic fluid stranding suspicious for early pancreatitis. Stable hepatic cysts. Degenerative changes in lumbar spine. No other significant abnormalities - start clear liquid diet and advance the diet slowly - IV fluids for hydration. Pain management morphine. Zofran for nausea. -GB sonogram with no gallstone HTN --Restart home med hydrochlorothiazide 25 mg daily- will monitor. Claudia Trujillo MD Nov 17, 2016 08:11
[2016-11-17] MEDS ORDERED: ENOXAPARIN SODIUM 40 MG/0.4 ML SYRINGE SQ SCH (09:00)
[2016-11-17] MEDS: HYDROCHLOROTHIAZIDE 25 MG TAB PO SCH (09:36)
[2016-11-17] MEDS: SODIUM CHLORIDE 0.9% FLUSH 5 ML FLUSH FLUSH SCH ×2 (09:36→20:16)
[2016-11-17] MEDS: ACETAMINOPHEN/HYDROcodone 325 MG/5 MG TAB PO PRN ×2 (13:38→23:46)
[2016-11-17] MEDS: clonazePAM 1 MG TAB PO SCH (20:15)
[2016-11-18 03:10] VITALS: BP 117/72; PULSE 73; RESP 16; TEMP 98.3; O2SAT 95
[2016-11-18 08:00] VITALS: BP 155/70; PULSE 82; RESP 16; TEMP 99.4; O2SAT 96
[2016-11-18] MEDS: HYDROCHLOROTHIAZIDE 25 MG TAB PO SCH (09:00)
[2016-11-18] MEDS: SODIUM CHLORIDE 0.9% FLUSH 5 ML FLUSH FLUSH SCH (09:00)
--- NOTE | 2016-11-18 09:02 | HHI.PR ---
Subjective Remarks abdominal pain has improved. tolerated the liquid diet. no other new complaints. d/w the RN. Objective Vitals Vital Signs Date Time Temp Pulse Resp B/P Pulse Ox O2 Delivery O2 Flow Rate FiO2 11/18/16 03:10 98.3 73 16 117/72 95 11/17/16 22:01 99.6 85 16 121/71 97 11/17/16 19:33 99.5 86 20 134/74 94 11/17/16 16:41 98.3 80 18 100/60 96 11/17/16 12:12 98.0 82 18 140/74 96 I/O 11/17/16 11/17/16 11/17/16 11/18/16 11/18/16 11/18/16 07:00 15:00 23:00 07:00 15:00 23:00 Intake Total 1875 ml 240 ml Balance 1875 ml 240 ml Intake Oral 975 ml 240 ml IV Total 900 ml # Voids 6 1 Result Diagram: 11/17/16 0403 11/17/16 0403 Imaging Last Impressions Abdomen/Pelvis CT 11/16/16 1322 Signed Impressions: Service Date/Time: Wednesday, November 16, 2016 15:13 - CONCLUSION: Mild peripancreatic fluid stranding suspicious for early pancreatitis. Stable hepatic cysts. Degenerative changes in lumbar spine. No other significant abnormalities. Conner Rajan MD Gall Bladder Ultrasound 11/16/16 0000 Signed Impressions: Service Date/Time: Wednesday, November 16, 2016 18:56 - CONCLUSION: 1. No acute findings. Jordi Mason MD Objective Remarks GENERAL: This is a well-nourished, well-developed patient, in no apparent distress. CARDIOVASCULAR: Regular rate and regular rhythm without murmurs, gallops, or rubs. RESPIRATORY: Clear to auscultation. Breath sounds equal bilaterally. No wheezes , rales, or rhonchi. GASTROINTESTINAL: Abdomen soft, minimal generalized tenderness, nondistended. Normal, active bowel sounds MUSCULOSKELETAL: Extremities without clubbing, cyanosis, or edema. NEURO: Alert & Oriented x4 to person, place, time, situation. Moves all ext x4 Procedures none Medications and IVs Current Medications Sodium Chloride (NS 1000 ml Inj) 1,000 ml @ 1,000 mls/hr Q1H IV Last administered on 11/16/16t 13:22; Start 11/16/16 at 13:22; Stop 11/16/16 at 14:21 ; Status DC IV Flush (NS Flush) 2 ml UNSCH PRN IVF FLUSH AFTER USING IV ACCESS Last administered on 11/16/16 16:22; Start 11/16/16 at 13:30 Morphine Sulfate (Morphine Inj) 4 mg ONCE ONCE IV PUSH Last administered on 15:23; Start 11/16/16 at 15:00; Stop 11/16/16 at 15:01; Status DC Ondansetron HCl 4 mg 4 mg ONCE ONCE IV PUSH Last administered on 11/16/16 15: 23; Start 11/16/16 at 15:00; Stop 11/16/16 at 15:01; Status DC Sodium Chloride (NS 1000 ml Inj) 1,000 ml @ 999 mls/hr BOLUS ONCE IV Last administered on 11/16/16 15:22; Start 11/16/16 at 15:00; Stop 11/16/16 at 16:00 ; Status DC Iohexol 100 ml 100 ml STK-MED ONCE IV Last administered on 11/16/16 15:28; Start 11/16/16 at 15:28; Stop 11/16/16 at 15:29; Status DC Potassium Chloride/Sodium Chloride (KCl Inj/NS 1000 ml Inj) 1,010 ml @ 100 mls/ hr Q10H6M IV ; Start 11/16/16 at 16:45; Status UNV Ondansetron HCl (Zofran Inj) 4 mg Q8HR PRN IV PUSH NAUSEA; Start 11/16/16 at 16 :45 Acetaminophen (Tylenol) 650 mg Q4H PRN PO FEVER; Start 11/16/16 at 16:45 Hydromorphone HCl 0.5 mg 0.5 mg Q4H PRN IV PUSH BREAKTHROUGH PAIN; Start at 16:45 Potassium Chloride/Sodium Chloride (NS + KCl 20 Meq Inj) 1,000 ml @ 100 mls/hr Q10H IV Last administered on 11/17/16 13:31; Start 11/16/16 at 17:15 Acetaminophen/ Hydrocodone Bitart ([place] 5-325 Mg) 1 tab Q4H PRN PO PAIN 1-5 Last administered on 11/17/16 23:46; Start 11/16/16 at 17:45 Acetaminophen/ Hydrocodone Bitart ([place] 5-325 Mg) 2 tab Q4H PRN PO PAIN 6-10 Last administered on 11/17/16 03:27; Start 11/16/16 at 17:45 Clonazepam (KlonoPIN) 1.5 mg HS PO Last administered on 11/17/16 20:15; Start 11/16/16 at 21:00 Hydrochlorothiazide (Hydrodiuril) 25 mg DAILY PO Last administered on 09:36; Start 11/17/16 at 09:00 Enalaprilat (Vasotec Inj) 1.25 mg Q8H PRN IV PUSH SBP> OR = 180, DBP> OR = 100 ; Start 11/16/16 at 18:15 IV Flush (NS Flush) 2 ml UNSCH PRN FLUSH FLUSH AFTER USING IV ACCESS; Start at 18:15 IV Flush (NS Flush) 2 ml BID FLUSH Last administered on 11/17/16 20:16; Start 11/16/16 at 21:00 Magnesium Hydroxide (Milk Of Magnesia Liq) 30 ml Q12H PRN PO CONSTIPATION; Start 11/16/16 at 18:15 Naloxone HCl (Narcan Inj) 0.4 mg UNSCH PRN IV SEE LABEL COMMENTS; Start at 18:15 Hydralazine HCl (Apresoline) 10 mg Q6HR PRN PO SBP >160, DBP >110; Start at 18:15 Enoxaparin Sodium (Lovenox Inj) 40 mg Q24H SQ Last administered on 11/17/16 09 :36; Start 11/17/16 at 09:00 A/P Assessment and Plan Pancreatitis - improving- abdominal pain is better and lipase trending down. - CT abdomen pelvis showed mild peripancreatic fluid stranding suspicious for early pancreatitis. Stable hepatic cysts. Degenerative changes in lumbar spine. No other significant abnormalities - advance the to low fat - IV fluids for hydration. Pain management morphine. Zofran for nausea. -GB sonogram with no gallstone HTN --Restarted home med hydrochlorothiazide 25 mg daily- will monitor. Discharge Planning dc home this afternoon if tolerates the diet. see med list. d/w the patient and RN. Claudia Trujillo MD Nov 18, 2016 09:02
[2016-11-18] MEDS ORDERED: HYDR-3516 PO (09:04)
--- NOTE | 2016-11-18 09:05 | HHI.DS ---
Discharge Summary Admission Date Nov 16, 2016 at 16:46 Discharge Date: Nov 18, 2016 Admitting Diagnosis acute pancreatitis (1) Acute pancreatitis ICD Code: K85.90 Diagnosis: Principal (2) HTN (hypertension) ICD Code: I10 Diagnosis: Secondary (3) Anxiety ICD Code: F41.9 Diagnosis: Secondary Procedures none Brief History - From Admission Patient is a 71-year-old old white male with primary medical history of colorectal cancer, anxiety, hypertension, chronic back pain who came into the hospital for complaints of abdominal pain. Abdominal pain started last night, feeling uncomfortable. He thought that he was just constipated in the beginning. However, it occurred to him that he might have a small bowel obstruction as he felt the same way when he had small bowel obstruction several years ago. He took some stool softeners, and had a bowel movement but states it 's less than his ideal bowel movement. He felt like he had a temperature but never really checked on the thermometer. Abdominal pain is described as generalized rated 4-5/10, it was constant, nonradiating, unrelieved by rest. Patient thought that abdominal pain is controlled go away and he ate toast and drank coffee this morning. Pain was persistent that he proceeded to go to the hospital. CBC showed neutrophil percentage 84.5 lymph percentage is 8.7, CMP potassium 3.4 , AST 13, lipase 7788. CT of the abdomen and pelvis showed mild peripancreatic fluid stranding suspicious for early pancreatitis. Stable hepatic cysts. Degenerative changes in the lumbar spine. No other significant abnormalities. Patient states that his pain has been relieved by morphine now. Denies any nausea, vomiting, diarrhea. Denies SOB/ dyspnea. Denies chest pain, palpitations, headaches, dizziness. Denies fevers, chills, n/v/d. CBC/BMP: 11/17/16 0403 11/17/16 0403 Significant Findings Laboratory Tests Test 11/16/16 11/16/16 11/17/16 12:37 14:12 04:03 Neutrophils (%) (Auto) 84.5 % 80.1 % (16.0-70.0) (16.0-70.0) Lymphocytes (%) (Auto) 8.7 % (9.0-44.0) Neutrophils # (Auto) 8.2 TH/MM3 8.5 TH/MM3 (1.8-7.7) (1.8-7.7) Lymphocytes # (Auto) 0.8 TH/MM3 (1.0-4.8) Activated Partial 30.3 SEC Thromboplast Time (24.3-30.1) Potassium Level 3.4 MEQ/L (3.5-5.1) Aspartate Amino Transf 13 U/L (15-37) (AST/SGOT) Lipase 7788 U/L 1950 U/L (73-393) (73-393) Urine Ketones 40 mg/dL (NEG) Red Blood Count 4.34 MIL/MM3 (4.50-5.90) Hematocrit 38.1 % (39.0-51.0) Calcium Level 8.4 MG/DL (8.5-10.1) Imaging Last Impressions Abdomen/Pelvis CT 11/16/16 1322 Signed Impressions: Service Date/Time: Wednesday, November 16, 2016 15:13 - CONCLUSION: Mild peripancreatic fluid stranding suspicious for early pancreatitis. Stable hepatic cysts. Degenerative changes in lumbar spine. No other significant abnormalities. Conner Rajan MD Gall Bladder Ultrasound 11/16/16 0000 Signed Impressions: Service Date/Time: Wednesday, November 16, 2016 18:56 - CONCLUSION: 1. No acute findings. Jordi Mason MD PE at Discharge GENERAL: This is a well-nourished, well-developed patient, in no apparent distress. CARDIOVASCULAR: Regular rate and regular rhythm without murmurs, gallops, or rubs. RESPIRATORY: Clear to auscultation. Breath sounds equal bilaterally. No wheezes , rales, or rhonchi. GASTROINTESTINAL: Abdomen soft, minimal generalized tenderness, nondistended. Normal, active bowel sounds MUSCULOSKELETAL: Extremities without clubbing, cyanosis, or edema. NEURO: Alert & Oriented x4 to person, place, time, situation. Moves all ext x4 Hospital Course Pancreatitis - improving- abdominal pain is better and lipase trending down. - CT abdomen pelvis showed mild peripancreatic fluid stranding suspicious for early pancreatitis. Stable hepatic cysts. Degenerative changes in lumbar spine. No other significant abnormalities - advance the to low fat - IV fluids for hydration. Pain management morphine. Zofran for nausea. -GB sonogram with no gallstone HTN --Restarted home med hydrochlorothiazide 25 mg daily- will monitor. Pt Condition on Discharge: Good Discharge Disposition: Discharge Home Discharge Time: <= 30 minutes Discharge Instructions DIET: Follow Instructions for: Heart Healthy Diet, Low Fat Diet Activities you can perform: Regular-No Restrictions Follow up Referrals: PCP Follow-up New Medications: Hydrocodone-Acetaminophen (Hydrocodone-Acetaminophen) 5-325 mg Tab 1 TAB PO Q6HR PRN pain #15 Ref 0 TAB Continued Medications: Atorvastatin (Atorvastatin) 20 Mg Tab 20 MG PO HS Cholesterol Management #30 Ref 0 TAB Clonazepam (Clonazepam) 1 Mg Tab 1.5 MG PO HS #60 Ref 0 TAB Hydrochlorothiazide (Hydrochlorothiazide) 25 Mg Tab 25 MG PO DAILY #30 Ref 0 TAB Discontinued Medications: Diphenoxylate-Atropine (Lomotil) 2.5-0.025 Mg Tab 1 TAB PO Q6H PRN DIARRHEA Ref 0 TAB Tramadol (Tramadol) 50 Mg Tab 50 MG PO Q6H PRN PAIN Ref 0 TAB Claudia Trujillo MD Nov 18, 2016 09:05
--- NOTE | 2016-11-18 09:05 | HHI.DCPOC ---
Discharge Care Plan Diagnosis: (1) Acute pancreatitis Additional Problems abdominal pain Goals to Promote Your Health * To prevent worsening of your condition and complications * To maintain your health at the optimal level Directions to Meet Your Goals Take your medications as prescribed Follow your dietary instruction Follow activity as directed Keep your appointments as scheduled Take your immunizations and boosters as scheduled If your symptoms worsen call your PCP, if no PCP go to Urgent Care Center or Emergency Room Smoking is Dangerous to Your Health. Avoid second hand smoke Call the 24-hour hour crisis hotline for domestic abuse at Claudia Trujillo MD Nov 18, 2016 09:05
[2016-11-18] MEDS: NS + KCL 20 MEQ INJ 1,000 ML IV SCH (09:15)
[2016-11-18] MEDS: ACETAMINOPHEN/HYDROcodone 325 MG/5 MG TAB PO PRN (09:56)
[2016-11-18 12:00] VITALS: BP 137/73; PULSE 79; RESP 16; TEMP 97.6; O2SAT 97
[2016-11-18] MEDS ORDERED: DIPHENOXYLATE/ATROPINE 2.5 MG/0.025 MG TAB PO ONE (14:15)
[2016-11-18 16:00] VITALS: BP 144/72; PULSE 80; RESP 16; TEMP 98; O2SAT 96
== END 2016-11-18 18:16 | disposition home or self-care (01) | DRG 440 ==
LOC: NEPC 11:17 → NEDA 16:46 → NEPGCP 21:17 → N06B 11-17 21:43
PROVIDERS: ADMIT Internal Medicine; ATTEND Internal Medicine
DX: K85.90 Acute pancreatitis without necrosis or infection, unspecified (principal); I10 Essential (primary) hypertension; F41.9 Anxiety disorder, unspecified; G89.29 Other chronic pain; Z86.79 Personal history of other diseases of the circulatory system; Z85.048 Personal history of other malignant neoplasm of rectum, rectosigmoid junction, and anus
CPT/HCPCS: 74177; 76705; 80048; 80053; 81001; 83605; 83690; 84478; 85025; 85610; 85730; 96361; 96374; 96375; J1650; J2270; J2405; J3480; J7030; Q9967